=== PATIENT | female | born 1995 | race Caucasian/White ===

== ENCOUNTER 2018-05-10 19:19 | Emergency (ER) | payer OTHER ==
[2018-05-10 19:45] VITALS: BP 108/66
--- NOTE | 2018-05-10 20:00 | UC ---
Dizzy HPI HPI Summary: States she had 2 episodes of sudden , short lived dizziness that lasted for seconds. The first one week ago happened while she was talking to her mother and the second one while at the computer working. It felt as if 'someone pushed her from behind' accompanied with palpitations. States she drinks coffee but no more than the ordinary, drinks little, denies drugs, supplements, tobacco or anything out of the ordinary. She is in midterms and in some stress. She states she had STD testing over the summer and that was negative. Denies rashes, fever or chills. - History Of Current Complaint Chief Complaint: UCGeneralIllness Stated Complaint: DIZZY Time Seen by Provider: 05/10/18 19:29 Hx Obtained From: Patient Hx Last Menstrual Period: 04/12/18 ?: No Onset/Duration: Sudden Onset Timing: Intermittent Episode Lasting - seconds Severity Initially: Mild Severity Currently: Mild Pain Intensity: 0 Character: Lightheaded, Dizzy, Unable To Describe Aggravating Factor(s): Nothing Alleviating Factor(s): Nothing Associated Signs And Symptoms: Positive: Palpitations - Risk Factors Cardiac Risk Factors: Negative CVA Risk Factor: Negative - Allergies/Home Medications Allergies/Adverse Reactions: Allergies Allergy/AdvReac Type Severity Reaction Status Date / Time No Known Allergies Allergy Verified 05/10/18 19:35 Home Medications: Home Medications Albuterol HFA INHALER* [Ventolin HFA Inhaler*] 2 puff INH Q4HR PRN 05/10/18 [ History Confirmed 05/10/18] Budesonide/Formote 160/4.5(NF) [Symbicort 160/4.5 (NF)] 2 puff INH BID 05/10/18 [History Confirmed 05/10/18] Cetirizine HCl [Zyrtec] 10 mg PO BEDTIME 05/10/18 [History Confirmed 05/10/18] PMH/Surg Hx/FS Hx/Imm Hx Previously Healthy: Yes Respiratory History: Asthma - Surgical History Surgical History: Yes Surgery Procedure, Year, and Place: tonsillectomy. deviated septum repair - Family History Known Family History: Positive: Respiratory Disease, Other - anxiety, anemia - Social History Alcohol Use: Occasionally Substance Use Type: None Smoking Status (MU): Never Smoked Tobacco Review of Systems Constitutional: Negative Neurological: Other - dizzy All Other Systems Reviewed And Are Negative: Yes Physical Exam - Summary Physical Exam Summary: Neuro exam normal. CN II-XII normal, sensory intact, gait is normal FROM x4, Strength preserved, coordination intact, cerebellar testing intact, romberg negative. Triage Information Reviewed: Yes Appearance: Well-Appearing, No Pain Distress, Well-Nourished Vital Signs: Initial Vital Signs Temp 99 F 05/10/18 19:38 Pulse 81 05/10/18 19:38 Resp 20 05/10/18 19:38 BP 108/66 05/10/18 19:38 Pulse Ox 100 05/10/18 19:38 Vital Signs Reviewed: Yes Eyes: Positive: Conjunctiva Clear ENT: Positive: Hearing grossly normal, Pharynx normal, TMs normal, Uvula midline Neck: Positive: Supple, Nontender, No Lymphadenopathy Respiratory: Positive: Chest non-tender, Lungs clear, Normal breath sounds, No respiratory distress Cardiovascular: Positive: RRR, No Murmur, Pulses Normal, Brisk Capillary Refill Abdomen Description: Positive: Nontender, No Organomegaly, Soft Bowel Sounds: Positive: Present Musculoskeletal: Positive: Strength Intact, ROM Intact, No Edema Neurological: Positive: Alert, Muscle Tone Normal, Fatigued Dizzy Course/Dx - Course Course Of Treatment: 23yo with short lived episodes of lightheadedness and palpations twice. Discussed influence of stress, sleep deprivation, dehydration and anxiety with her. PE is normal, will conduct some screening blood testing and f/u with [facility] for follow up. - Differential Dx/Diagnosis Provider Diagnoses: dizziness Discharge - Sign-Out/Discharge Documenting (check all that apply): Patient Departure All imaging exams completed and their final reports reviewed: No Studies - Discharge Plan Condition: Stable Disposition: HOME Patient Education Materials: Dizziness (ED) [facility]errals: [facility] [Primary Care Provider] - - Billing Disposition and Condition Condition: STABLE Disposition: Home
[2018-05-11 11:05] LABS: ABS Basophils 0 10^3/ul (0-0.2); ABS Eosinophils 0.2 10^3/ul (0-0.6); ABS Lymphocytes 2.9 10^3/ul (1.0-4.8); ABS Monocytes 0.9 10^3/ul (0-0.8); ABS Neutrophils 4.8 10^3/ul (1.5-7.7); ABS Nucleated RBC 0 10^3/ul; Eosinophil % 2.5 % (0-6); Hematocrit 38 % (35-47); Hemoglobin 13.1 g/dl (12.0-16.0); Lymphocyte % 33.1 % (25-47); Mean Corpuscular HGB Conc 35 g/dl (31-36); Mean Corpuscular Hemoglobin 31 pg (27-31); Mean Corpuscular Volume 88 fL (80-97); Mean Platelet Volume 8.3 um3 (7.4-10.4); Nucleated Red Blood Cells % 0.1; Platelet Count 235 10^3/ul (150-450); Red Blood Count 4.29 10^6/ul (4.00-5.40); Red Cell Distribution Width 12 % (10.5-15); White Blood Count 8.9 10^3/ul (3.5-10.8)
[2018-05-11 11:46] LABS: EGFR Non-African American 113.1 (>60)
== END 2018-05-10 20:50 | disposition home or self-care (01) ==
LOC: UCEAST 19:19
DX: R42 Dizziness and giddiness (principal); J45.909 Unspecified asthma, uncomplicated
CPT/HCPCS: 36415; 80053; 84443; 85025; 99201; G0463